=== PATIENT | male | born 1950 | race Two or more races ===

== ENCOUNTER 2024-11-06 11:45 | Inpatient (IN) | payer OTHER ==
[~2024-11-06] VITALS: Ht 182.9 cm; Wt 112.9 kg
[2024-11-06] MEDS ORDERED: GLUMETZA500 MG PO (13:42)
[2024-11-06] MEDS ORDERED: ZESTRIL40 M1 PO (13:42)
[2024-11-06 13:43] VITALS: BP 180/110
[2024-11-06 14:54] LABS: RH POSITIVE
[2024-11-12] MEDS ORDERED: TRANEXAMIC ACID 100MG/1ML (1000MG) AMPUL IV ONE ×2 (11:45)
[2024-11-12] MEDS ORDERED: KETOROLAC TROMETHAMINE 60 MG VIAL IM ONE (11:45)
[2024-11-12] MEDS ORDERED: CEFAZOLIN SODIUM 1,000 MG VIAL IV ONE (11:45)
[2024-11-12] MEDS ORDERED: METHYLPREDNISOLONE ACETATE 80 MG/ML VIAL IU ONE (11:45)
[2024-11-12] MEDS ORDERED: VANCOMYCIN HCL 1,000 MG VIAL ONE (14:10)
[2024-11-12] MEDS ORDERED: POVIDONE-IODINE 118 ML BOTT TOP ONE (14:16)
[2024-11-12] MEDS ORDERED: SODIUM CHLORIDE 0.45 % 1,000 ML IV SCH (15:00)
[2024-11-12] MEDS ORDERED: ONDANSETRON HCL 2 MG/ML VIAL IV PRN (15:00)
[2024-11-12] MEDS ORDERED: PROMETHAZINE HCL 25 MG/ML AMPUL IM PRN (15:15)
[2024-11-12] MEDS ORDERED: MEPERIDINE HCL/PF 25 MG/ML VIAL IM PRN (15:15)
[2024-11-12] MEDS ORDERED: CELECOXIB 200 MG CAPSULE PO SCH (17:00)
[2024-11-12] MEDS ORDERED: MetFORMIN HCL 500 MG TABLET PO SCH (17:00)
[2024-11-12] MEDS ORDERED: CEFAZOLIN SODIUM 1,000 MG VIAL ONE (17:22)
[2024-11-12 17:50] VITALS: BP 165/79; O2SAT 98
[2024-11-12 17:54] LABS: HEMATOCRIT 41.8 % (39.0-48.0); RED BLOOD COUNT 4.52 M/uL (4.00-6.00)
[2024-11-12] MEDS ORDERED: CEFAZOLIN SODIUM 1,000 MG VIAL IV SCH (18:00)
[2024-11-12] MEDS ORDERED: GENTAMICIN SULFATE 40 MG/ML VIAL IV SCH (21:00)
[2024-11-13] VITALS: BP 162/68; O2SAT 99
[2024-11-13 06:48] LABS: HEMATOCRIT 38.7 % (39.0-48.0); HEMOGLOBIN 13.4 g/dL (13-16.00); MEAN CELL VOLUME 91.6 fL (80.0-100.00); MEAN CORPUSCULAR HEMOGLOBIN 31.7 pg (27.00-32.0); MEAN CORPUSCULAR HGB CONC 34.6 g/dl (32.0-36.0); PLATELET COUNT 199 K/uL (150-450); RED BLOOD COUNT 4.23 M/uL (4.00-6.00)
[2024-11-13 08:00] VITALS: BP 158/72; O2SAT 99
[2024-11-13] MEDS ORDERED: TRAMADOL HCL 50 MG TABLET PO PRN (08:00)
[2024-11-13] MEDS ORDERED: ACETAMINOPHEN WITH CODEINE 1 UDTAB TABLET PO PRN (08:00)
[2024-11-13] MEDS ORDERED: SENNA/DOCUSATE SODIUM 1 TAB TABLET PO SCH (09:00)
[2024-11-13] MEDS ORDERED: IRON FUM,PS/FOLIC/BCOMP,C NO.9 1 CAP CAPSULE PO SCH (09:00)
[2024-11-13] MEDS ORDERED: LISINOPRIL 40 MG TABLET PO SCH (09:00)
[2024-11-13] MEDS ORDERED: RIVAROXABAN 10 MG TAB PO SCH (09:00)
[2024-11-13] MEDS ORDERED: BACITRACIN 28.35 GM OINT.TUBE TOP SCH (09:00)
[2024-11-13 19:32] VITALS: BP 130/63; O2SAT 99
[2024-11-14 00:30] VITALS: BP 140/72; O2SAT 99
[2024-11-14 06:28] LABS: HEMATOCRIT 35.8 % (39.0-48.0); MEAN CELL VOLUME 93.7 fL (80.0-100.00); MEAN CORPUSCULAR HEMOGLOBIN 31.5 pg (27.00-32.0); MEAN CORPUSCULAR HGB CONC 33.6 g/dl (32.0-36.0); PLATELET COUNT 176 K/uL (150-450); RED BLOOD COUNT 3.82 M/uL (4.00-6.00)
[2024-11-14] MEDS ORDERED: Septra Ds Tablet PO (06:33)
[2024-11-14] MEDS ORDERED: INTEGRA PLUS C1 EACH PO (06:33)
[2024-11-14] MEDS ORDERED: XARELTO10 MG PO (06:33)
[2024-11-14] MEDS ORDERED: TRAMADOL HCL50 MG PO (06:34)
[2024-11-14 08:14] VITALS: BP 165/79; O2SAT 97
[2024-11-14] MEDS ORDERED: SULFAMETHOXAZOLE/TRIMETHOPRIM DS 1 TAB PO SCH (09:00)
== END 2024-11-14 14:08 | DRG 470 ==
LOC: O/R 11-12 05:35 → SURH 11-12 05:35 → SURG 11-12 07:00 → SURH 11-12 15:55
PROVIDERS: ADMIT Orthopaedic Surgery Sports Medicine; ATTEND Orthopaedic Surgery Sports Medicine
PROC: 0SRC0J9 Replacement of Right Knee Joint with Synthetic Substitute, Cemented, Open Approach (ICD-10-PCS; principal; 2024-11-12 07:00)
DX: M17.11 Unilateral primary osteoarthritis, right knee (principal); I10 Essential (primary) hypertension